=== PATIENT | male | born 1960 | race Two or more races ===

== ENCOUNTER 2018-01-19 14:42 | Emergency (ER) | payer MEDICARE, MEDICAID ==
[~2018-01-19] VITALS: Ht 185.4 cm; Wt 108.4 kg
[2018-01-19 14:56] VITALS: BP 122/75
[2018-01-19 15:30] LABS: Basophils # (auto) 0.1 uL; Basophils % (auto) 0.9 % (0.0-2.0); Eosinophils # (auto) 0.1 uL; Eosinophils % (auto) 1.2 % (0.0-7.0); Hematocrit 42.7 % (41.0-53.0); Hemoglobin 14.6 g/dL (13.5-17.5); Lymphocytes # (auto) 1.2 uL; Lymphocytes % (auto) 13.9 % (10.0-50.0); Mean Corpuscular Hemoglobin 30.8 pg (28.0-32.0); Mean Corpuscular Hgb Conc. 34.2 g/dL (32.0-36.0); Monocytes # (auto) 0.9 uL; Monocytes % (auto) 10.7 % (0.0-12.0); Neutrophils # (auto) 6.4 uL; Neutrophils % (auto) 73.3 % (37.0-80.0); Nucleated Red Blood Cells % 0.1 %; Platelet Count (auto) 270 10^3/uL (140-450); Red Blood Cells 4.74 10^6/uL (4.5-5.90); Red Cell Distribution Width 13.6 % (11.8-14.3); White Blood Cell 8.8 10^3/uL (4.4-10.8)
[2018-01-19 15:44] LABS: Urine Bacteria FEW /hpf (None Seen); Urine Blood 2+ /uL (Negative); Urine Specific Gravity 1.004 (1.001-1.035); Urine WBC 190 /hpf (0 - 3)
[2018-01-19 15:50] LABS: Albumin 3.5 g/dL (3.4-5.0); BUN/Creatinine Ratio 11.9; Bilirubin, Total 0.4 mg/dL (0.2-1.0); Calcium 8.6 mg/dL (8.5-10.1); Potassium 4.1 mmol/L (3.5-5.1); Total Protein 7.1 g/dL (6.4-8.2)
[2018-01-19] MEDS ORDERED: cefTRIAXone SOD 1,000 MG VL IM ONE (16:15)
== END 2018-01-19 17:10 | disposition home or self-care (01) ==
LOC: ER 14:42
DX: N39.0 Urinary tract infection, site not specified (principal)
CPT/HCPCS: 36415; 80053; 81001; 85025; 96372; 99284; J0696

== ENCOUNTER 2025-01-22 15:53 | Emergency (ER) | payer MEDICARE, MEDICAID ==
[~2025-01-22] VITALS: Ht 180.3 cm; Wt 93.5 kg
[2025-01-22 16:10] VITALS: BP 123/75; PULSE 81; RESP 17; TEMP 98.5; O2SAT 96
--- NOTE | 2025-01-22 16:30 | ED.PDOC ---
General HPI Comments A 64 YEAR OLD MALE PRESENTS TO THE ED WITH COMPLAINT OF DIFFICULTY EMPTYING BLADDER. PATIENT'S CAREGIVER STATES THE PATIENT HAS A HISTORY OF FREQUENT UTIS IN THE PAST AND USE SELF CATHETERIZES HIMSELF ON A DAILY BASIS. PATIENT'S CAREGIVER STATES THE PATIENT HAS NOT BEEN ABLE TO EMPTY HIS BLADDER MUCH TODAY AND NOTES HE ONLY HAD A SMALL URINE OUTPUT. PATIENT'S CAREGIVER IS CONCERNED THE PATIENT MAY HAVE ANOTHER UTI. PATIENT DENIES HEMATURIA, FLANK PAIN, FEVER, CHILLS, SHORTNESS OF BREATH, CHEST PAIN, ABDOMINAL PAIN, NAUSEA, VOMITING, HEADACHE, OR OTHER COMPLAINTS. NO OTHER SYMPTOMS OR MODIFYING FACTORS AT THIS TIME. PATIENT IS ALERT, ORIENTED X 4, AND HAS STEADY GAIT. Chief Complaint: Urinary Time Seen by MD: 16:47 Reviewed notes: Nurses Notes, Medications, Allergies Allergies: Coded Allergies: NO KNOWN ALLERGIES (Unverified , 01/19/18) Information Source: Patient Mode of Arrival: Ambulatory Severity: Moderate Inability to void: None Timing: Hours Duration: Since onset, Hours Prehospital treatment: None Onset: Spontaneous Symptoms: Other (SMALL URINE OUTPUT) History of: UTI Location: Suprapubic, None Penile discharge: None Modifying factors: None associated signs and symptoms: None Past Medical History PAST MEDICAL HISTORY: UTI'S Past Medical History (Other): KIDNEY DISEASE, BPH Surgical History: Denies all surgeries Family History Family History: Reviewed,noncontributory to illness Social History Smoker: Non-Smoker Alcohol: Denies ETOH Use Drugs: Denies Drug Use Lives In: Home Constitutional: denies: chills, diaphoresis, fatigue, fever, malaise, sweats, weakness, others EENTM: denies: blurred vision, double vision, ear bleeding, ear discharge, ear drainage, ear pain, ear ringing, eye pain, eye redness, hearing loss, mouth pain, mouth swelling, nasal discharge, nose bleeding, nose congestion, nose pain, photophobia, tearing, throat pain, throat swelling, voice changes, others Respiratory: denies: cough, hemoptysis, orthopnea, SOB at rest, shortness of breath, SOB with excertion, stridor, wheezing, others Cardiovascular: denies: chest pain, dizzy spells, diaphoresis, Dyspnea on exertion, edema, irregular heart beat, left arm pain, lightheadedness, palpitations, PND, syncope, others Gastrointestinal: denies: abdomen distended, abdominal pain, blood streaked bowels, constipated, diarrhea, dysphagia, difficulty swallowing, hematemesis, melena, nausea, poor appetite, poor fluid intake, rectal bleeding, rectal pain, vomiting, others Genitourinary: reports: others (SMALL URINE OUTPUT); denies: burning, dysuria, flank pain, frequency, hematuria, incontinence, penile discharge, penile sore, pain, testicle pain, testicle swelling, urgency Neurological: denies: dizziness, fainting, headache, left sided numbness, left sided weakness, numbness, paresthesia, pre-existing deficit, right sided numbness, right sided weakness, seizure, speech problems, tingling, tremors, weakness, others Musculoskeletal: denies: back pain, gout, joint pain, joint swelling, muscle pain, muscle stiffness, neck pain, others Integumetry: denies: bruises, change in color, change in hair/nails, dryness, laceration, lesions, lumps, rash, wounds, others Allergic/Immunocompromised: denies: Difficulty Healing, Frequent Infections, Hives, Itching, others Hematologic/Lymphatic: denies: anemia, blood clots, easy bleeding, easy bruising, swollen glands, others Endocrine: denies: excessive hunger, excessive sweating, excessive thirst, excessive urination, flushing, intolerance to cold, intolerance to heat, unexplained weight gain, unexplained weight loss, others Psychiatric: denies: anxiety, bipolar disorder, depression, hopeless, panic disorder, schizophrenia, sleepless, suicidal, others All Other Systems: Reviewed and Negative Physical Exam General Appearance: No Apparent Distress, Normal HEENT: Normal ENT Inspection, PERRL/EOMI, Pharynx Normal, TMs Normal Neck: Full Range of Motion, Non-Tender, Normal, Normal Inspection Respiratory: Chest Non-Tender, Lungs Clear, No Accessory Muscle Use, No Respiratory Distress, Normal Breath Sounds Cardiovascular: No Edema, No JVD, No Murmur, No Gallop, Normal Peripheral Puls es, Regular Rate/Rhythm Breast Exam: Deferred Gastrointestinal: No Organomegaly, No Pulsatile Mass, Normal Bowel Sounds, Soft, Suprapubic (PRESSURE, MILD DISTENTION. ) Genitalia: Deferred Pelvic: Deferred Rectal: Deferred Extremities: No calf tenderness, Normal capillary refill, Normal inspection, Normal range of motion, Non-tender, No pedal edema Musculoskeletal : Apperance: Normal Neurologic: Alert, storage consultant II-XII nml as Tested, No Motor Deficits, Normal Affect, Normal Mood, No Sensory Deficits Cerebellar Function: Normal Reflexes: Normal Skin: Dry, Normal Color, Warm Peripheral Pulses: 2+ carotid (R), 2+ carotid (L) Lymphatic: No Adenopathy Was a procedure done? Was a procedure done?: No Differential Diagnosis Kidney stone (Female): N/A Kidney stone (Male): Urinary obstruction, N/A Penile/Scrotal: N/A Urinary Problem (Male): Bladder Obstruction, Urinary Retention, Urolithiasis, UTI Urinary Problem (Female): N/A X-Ray, Labs, Meds, VS Vital Signs Date Time Temp Pulse Resp B/P (MAP) Pulse Ox O2 Delivery O2 Flow Rate FiO2 01/22/25 16:10 98.5 81 17 123/75 (91) 96 98.5 Lab Test 01/22/25 16:45 01/22/25 16:28 Range/Units Urine Color Colorless Yellow Urine Clarity Clear Clear Urine pH 7.0 5.0-9.0 Urine Specific [place] 1.002 1.001-1.035 Urine Protein Negative Negative Urine Ketones Negative Negative Urine Blood Negative Negative /uL Urine Nitrite 2+ H Negative Urine Bilirubin Negative Negative Urine Urobilinogen Normal Negative mg/dL Urine Leukocyte Esterase 3+ Negative /uL Urine RBC 1 0 - 3 /hpf Urine Microscopic WBC 16 H 0-3 /HPF Urine Squamous Epithelial Cells None seen <5 /hpf Urine Bacteria Many H None Seen /hpf Urine Mucus Few None Seen Urine Glucose Normal Normal mg/dL White Blood Count 5.5 4.4-10.8 10^3/uL Red Blood Count 4.22 L 4.5-5.90 10^6/uL Hemoglobin 12.5 L 13.5-17.5 g/dL Hematocrit 37.1 L 41.0-53.0 % Mean Corpuscular Volume 88.0 80.0-100.0 fL Mean Corpuscular Hemoglobin 29.6 28.0-32.0 pg Mean Corpuscular Hemoglobin Concent 33.7 32.0-36.0 g/dL Red Cell Distribution Width 13.7 11.8-14.3 % Platelet Count 305 140-450 10^3/uL Mean Platelet Volume 6.4 L 6.9-10.8 fL Neutrophils (%) (Auto) 67.5 37.0-80.0 % Lymphocytes (%) (Auto) 16.7 10.0-50.0 % Monocytes (%) (Auto) 12.7 H 0.0-12.0 % Eosinophils (%) (Auto) 2.2 0.0-7.0 % Basophils (%) (Auto) 0.9 0.0-2.0 % Neutrophils # (Auto) 3.8 1.6-8.6 10 ^3/uL Lymphocytes # (Auto) 0.9 0.4-5.4 10 ^3/uL Monocytes # (Auto) 0.7 0-1.3 10 ^3/uL Eosinophils # (Auto) 0.1 0-0.8 10 ^3/uL Basophils # (Auto) 0 0-0.2 10 ^3/uL Nucleated Red Blood Cells 0.0 % Sodium Level 122 L 136-145 mmol/L Potassium Level 4.6 3.5-5.1 mmol/L Chloride Level 90 L 98-107 mmol/L Carbon Dioxide Level 26 20-31 mmol/L Anion Gap 6 5-15 Blood Urea Nitrogen 20 9-23 mg/dL Creatinine 1.32 H 0.700-1.30 mg/dL Glomerular Filtration Rate Calc 61 >90 mL/min BUN/Creatinine Ratio 15.2 10.0-20.0 Serum Glucose 103 74-106 mg/dL Calcium Level 9.0 8.7-10.4 mg/dL X-Ray, Labs, Meds, VS Comment EXTERNAL MEDICAL RECORDS: NONE INDEPENDENT HISTORIANS: NONE SOCIAL DETERMINANTS OF HEALTH: NONE LABS ORDERED: CBC, BMP, UA REVIEWED AND INTERPRETED RESULTS: NITRITE 2+, LEUKO 3+, NA 122 IMAGING ORDERED: NONE TREATMENTS ORDERED: NS 1L IV, ROCEPHIN 1G IV PATIENT DECLINED SOLORZANO CATHETER HERE IN THE ED. PATIENT'S CASE AND RESULTS HAVE BEEN DISCUSSED WITH THE ED ATTENDING PHYSICIAN, DR. THURMAN, AND HE AGREES WITH MY PLAN OF CARE. DUE TO THE PATIENT'S LAB RESULTS, MEDICAL HISTORY, AND SINCE THE PATIENT IS HAVING SMALL URINE OUTPUT DESPITE SELF CATHETERIZATION, I HAVE DETERMINED THE PATIENT NEEDS TO BE ADMITTED FOR FURTHER TREATMENT AND UROLOGY CONSULT. THE ON- CALL HOSPITALIST AND UROLOGIST WILL BE CONTACTED FOR ADMISSION AND CONSULT. Time of 1ST Reevaluation: 17:35 Reevaluation 1ST: Unchanged Patient Education/Counseling: Diagnosis, Treatment Family Education/Counseling: Diagnosis, Treatment SEPSIS Sepsis Screen Physician Orders Heplock Iv (01/22/25 ) Sodium Chloride 0.9% (01/22/25 17:15) Urine Bacterial Culture (01/22/25 17:24) Ceftriaxone 1gm/50ml D5w (Rocephin) (01/22/25 17:30) Vital Signs Date Time Temp Pulse Resp B/P (MAP) Pulse Ox O2 Delivery O2 Flow Rate FiO2 01/22/25 16:10 98.5 81 17 123/75 (91) 96 98.5 Laboratory Tests Test 01/22/25 16:28 White Blood Count 5.5 10^3/uL (4.4-10.8) Departure 1 Departure Time of Disposition: 17:35 Impression: Primary Impression: Urinary retention Additional Impressions: Acute UTI (urinary tract infection) Acute hyponatremia Disposition: ADMITTED INPATIENT Admit to: Med Surg Condition: Serious Additional Instructions: Critical Care Note Critical Care Time?: No Stability Stability form required: No I personally scribed for JOSEMANUEL TATEA PA ([email or web address]) on 01/22/25 at 16:30. Electronically submitted by Krys Tripp ([email or web address]). I personally scribed for BEBETOJOSEMANUELA PA ([email or web address]) on 01/22/25 at 17:10. Electronically submitted by Krys Tripp ([email or web address]). I personally scribed for BEBETOJOSEMANUEL KamA PA ([email or web address]) on 01/22/25 at 17:15. Electronically submitted by Jared Parrish ([email or web address]). I personally scribed for BEBETOJOSEMANUELA PA ([email or web address]) on 01/22/25 at 17:22. Electronically submitted by Jared Parrish ([email or web address]). I personally scribed for BEBETOLUANNXIA PA ([email or web address]) on 01/22/25 at 17:31. Electronically submitted by Jared Parrish ([email or web address]). I personally scribed for BEBETOLUANNXIA PA ([email or web address]) on 01/22/25 at 17:32. Electronically submitted by Jaerd Parrish ([employer]). BEBETODONNY Kam Jan 22, 2025 16:30
[2025-01-22 16:38] LABS: Hematocrit 37.1 % (41.0-53.0); Hemoglobin 12.5 g/dL (13.5-17.5); Mean Corpuscular Hemoglobin 29.6 pg (28.0-32.0); Mean Corpuscular Volume 88.0 fL (80.0-100.0); Nucleated Red Blood Cells % 0.0 %
[2025-01-22 16:48] LABS: Potassium 4.6 mmol/L (3.5-5.1)
[2025-01-22 16:49] LABS: Anion Gap 6 (5-15); Carbon Dioxide 26 mmol/L (20-31)
[2025-01-22 16:50] LABS: Calcium 9.0 mg/dL (8.7-10.4)
[2025-01-22 16:54] LABS: Chloride 90 mmol/L (98-107); Glucose 103 mg/dL (74-106); Sodium 122 mmol/L (136-145)
[2025-01-22 16:55] LABS: BUN/Creatinine Ratio 15.2 (10.0-20.0); Blood Urea Nitrogen 20 mg/dL (9-23)
[2025-01-22 17:12] LABS: Urine Protein, UAD Negative (Negative)
[2025-01-22] MEDS ORDERED: ONDANSETRON HCL 4 MG/2 ML VIAL IV PRN (17:45)
[2025-01-22] MEDS ORDERED: ACETAMINOPHEN 325 MG TAB PO PRN (17:45)
[2025-01-22] MEDS: SODIUM CHLORIDE 0.9% 1,000 ML IV ONE (17:45)
[2025-01-22] MEDS: cefTRIAXone 1GM/50ML D5W 50 ML IV ONE (17:45)
[2025-01-22] MEDS ORDERED: TAMSULOSIN HYDROCHLORIDE 0.4 MG CAP PO SCH (18:00)
[2025-01-23] MEDS ORDERED: SERTRALINE HCL 50 MG TAB PO SCH (10:00)
== END 2025-01-22 18:54 | disposition left against medical advice (07) ==
LOC: ER 15:53 → UNDODISIN 17:45 → UNDOADMIN 17:45 → OVERFLOW 17:45 → ER 18:54 → OVERFLOW 18:54
DX: N39.0 Urinary tract infection, site not specified (principal); E87.1 Hypo-osmolality and hyponatremia; N40.0 Benign prostatic hyperplasia without lower urinary tract symptoms; Z53.29 Procedure and treatment not carried out because of patient's decision for other reasons
CPT/HCPCS: 36415; 80048; 81001; 85025; G0378